=== PATIENT | female | born 1990 | race Caucasian/White ===

== ENCOUNTER 2017-05-27 17:51 | Emergency (ER) | payer OTHER ==
[2017-05-27] MEDS: CLINDAMYCIN 600 MG/D5W (PMX) 50 ML IVPB (20:30)
[2017-05-27] MEDS: KETOROLAC 30 MG INJ IV (21:06)
[2017-05-27] MEDS: SOD CHLORIDE 0.9% 500 ML IV (21:06)
[2017-05-27] MEDS: DEXAMETHASONE 10 MG/ML 1 ML INJ IV (21:06)
== END 2017-05-27 22:43 | disposition home or self-care (01) ==
LOC: FTE 17:51
DX: L02.211 Cutaneous abscess of abdominal wall (principal)
CPT/HCPCS: 96374; 96375; 99284-25